=== PATIENT | male | born 1995 | race African-American/Black ===

== ENCOUNTER 2019-03-08 13:18 | Emergency (ER) | payer OTHER ==
[2019-03-08 13:23] VITALS: BP 141/86
[2019-03-08] MEDS ORDERED: RANI1TAB38 PO (13:28)
[2019-03-08] MEDS ORDERED: IBUP-1022 PO (13:28)
== END 2019-03-08 14:15 | disposition home or self-care (01) ==
LOC: M ED 13:18
DX: F43.20 Adjustment disorder, unspecified (principal); F17.200 Nicotine dependence, unspecified, uncomplicated